=== PATIENT | female | born 1990 | race Caucasian/White ===

== ENCOUNTER 2021-09-04 20:22 | Emergency (ER) | payer MEDICAID ==
[~2021-09-04] VITALS: Ht 167.6 cm; Wt 59.0 kg
[2021-09-04 20:48] VITALS: BP_SYST 111
--- NOTE | 2021-09-04 22:00 | NUR ---
Patient left without being seen. ER MD aware
== END 2021-09-04 22:00 | disposition left against medical advice (07) ==
LOC: SED 20:22
DX: N93.9 Abnormal uterine and vaginal bleeding, unspecified (principal); Z53.21 Procedure and treatment not carried out due to patient leaving prior to being seen by health care provider